=== PATIENT | male | born 1955 | race African-American/Black ===

== ENCOUNTER 2024-11-11 16:12 | Emergency (ER) | payer OTHER, SELFPAY ==
[2024-11-11 16:15] VITALS: BP 126/102
[2024-11-11 16:23] VITALS: BP 121/74; BMI 34.4
[2024-11-11 16:42] LABS: Hematocrit 34.7 % (39.0-52.0); Hemoglobin 11.5 g/dL (13.0-18.0); Mean Corp Hgb Conc. 33.1 g/dL (33.0-37.0); Mean Corpuscular Volume 84.0 fL (80.0-94.0); Nucleated Red Blood Cells % 0 % (-); Platelet Count 193 10^3/uL (130-400); Red Cell Dist. Width 14.0 % (11.5-14.5)
[2024-11-11 16:53] LABS: ALT (SGPT) 14 U/L (0-50); AST (SGOT) 24 U/L (17-59); Albumin 3.8 g/dl (3.5-5.0); Alkaline Phosphatase 47 U/L (38-126); Blood Urea Nitrogen 11 mg/dl (9-20); Calcium 11.5 mg/dl (8.4-10.2); Carbon Dioxide 24 mmol/L (22-30); Chloride 114 mmol/L (98-107); Estimated Creatinine Clearance 59 ml/min; Glucose 84 mg/dl (70-99); Potassium 4.3 mmol/L (3.5-5.1); Sodium 140 mmol/L (135-145); Total Protein 6.4 g/dl (6.3-8.2); eGFR > 60.00
[2024-11-11 17:00] VITALS: BP 118/79
--- NOTE | 2024-11-11 17:35 | ED.GENMED ---
History of Present Illness
General
Chief Complaint: Fall
Source: patient
Exam Limitations: none
Time Seen by Provider: 11/11/24 16:40
Nursing documentation reviewed up to this point in time: agreed with
History of Present Illness
History of Present Illness:
69[place]year[place] squats in the yard, had some pain in his neck felt hot went inside to play chess with a friend, then passed out was awoken after giving Narcan by staff, denies any illicit drug use, no chest pain or shortness of
breath, no fever or chills no abdominal pain states he feels fine now except some mild pain in his neck, no history of CAD no history of syncope, has been incarcerated for over a year formerly homeless in [place] tells me he is up for parole
soon not using any drugs
Past History
Past History
ED Past Medical History: Psychiatric
Social History
Tobacco: Non-smoker
Alcohol: None
Drug: None
Personal: Single
Living: care home
Employment: Not employed
Family History
Family History: Cancer; Negative CAD or Sudden
Review of Systems
Review of Systems
All Other Systems: Not applicable
EENT: Reports no symptoms
Respiratory: Reports no symptoms
Cardiac: Reports syncope; Denies chest pain
ABD/GI: Reports no symptoms
Musculoskeletal: Reports neck pain
Skin: Reports no symptoms
Neurological: Reports no symptoms
Phy Exam
Physical Exam
Physical Exam:
Physical Exam
General: no apparent distress, not acutely ill
Neck: No tongue bite, mild paraspinal neck pain and mid cervical spine
Heart: Regular
Lungs: no acute respiratory distress. clear bilaterally
Abdomen: Nontender
Neuro: alert and oriented. no focal neurological deficits
Skin: no rash
Psychiatric: well kept. interactive and cooperative
Extremities: no edema.
Scores
Heaters Syncope Rule
Conjestive Heart Failure History: No
Hematocrit <30%: No
EKG Abnormal (New changes, non NSR on EKG/Monitor): No
Shortness of Breath Symptoms: No
Systolic BP <90 mmHg at Triage: No
Patient is high risk for syncope: No
Course
Orders/Labs/Results
Orders:
Orders
11/11/24 16:26
Electrocardiogram (*1) Urgent
Reason for Study: Syncope
EKG- Treatment ONCE
11/11/24 16:27
CMP [Comprehensive Metabolic Panel] Urgent
Complete Blood Count/With Diff Urgent
11/11/24 17:12
CT Cervical Spine W/o Iv Contr Urgent
Comment:
Reason For Exam: fall
CT Head W/o Iv Contrast Urgent
Comment:
Reason For Exam: fall
11/11/24 17:21
Troponin I Urgent
11/11/24 17:22
Fentanyl, Urine Urgent
Urine Drug Abuse Screen Urgent
Date Specimen was Collected: 11/11/24
Time Specimen was Collected: 17:23
11/11/24 19:22
Troponin I Urgent
Abnormal Lab Results
11/11/24
16:27
RBC 4.13 L 10^6/uL
(4.70-6.10)
Hgb 11.5 L g/dL
(13.0-18.0)
Hct 34.7 L %
(39.0-52.0)
Absolute Monos (auto) 0.8 H 10^3/uL
(0.1-0.6)
Neutrophils % 39.1 L %
(42.2-75.2)
Monocytes % 14.8 H %
(1.7-9.3)
Chloride 114 H mmol/L
(98-107)
Calcium 11.5 H mg/dl
(8.4-10.2)
11/11/24 16:27
11/11/24 16:27
Vital Signs
Initial and Last Documented VS:
Initial Vital Signs
Temp Pulse Resp BP Pulse Ox
98.1 F 62 20 126/102 100
11/11/24 16:15 11/11/24 16:15 11/11/24 16:15 11/11/24 16:15 11/11/24 16:15
Last Documented Vital Signs
Temp Pulse Resp BP Pulse Ox
98.1 F 61 25 118/79 99
11/11/24 16:15 11/11/24 18:45 11/11/24 18:45 11/11/24 17:00 11/11/24 19:15
MDM/Problems Addressed
Differential Diagnosis Includes:
Vasovagal arrhythmia drug overdose less likely ACS or PE
MDM/Problems Addressed:
Syncope
*Radiology
Radiology exam reviewed: radiology read reviewed
*Pulse Oximetry
SaO2: 99
Oxygen Mode of Delivery: Room air
Patient hypoxic: no
*EKG
Interpreted by ED Provider?: Yes
Interpretation: normal
Comparison EKG: no comparison EKG present
Heart Rate: 76
Rate: normal
Rhythm: sinus
Ischemia: no ischemia
*Media Sales Representative Interpretation
Rate: normal
Interpretation: normal
Heart Rate: 78
Rhythm: sinus
*Critical Care Note
Total Time (30-74mins, 75-104mins- exclusive of procedures): Not Applicable
Update Note
Update Note:
Update, suspect vasovagal, did improve after Narcan unclear if its temporal relationship or not, adamantly denies any drugs, EKG noted will check CT of the head cervical spine due to fall and neck pain, also troponin
6:[address] reports noted, labs noted troponin noted urine drug screen noted
8:15 PM update second troponin noted
ED Attending Note
-
Portions of this chart may have been created with voice recognition software.� Occasional wrong word or��sound alike� substitutions may have occurred due to the inherent limitations of voice recognition software.
Discharge Plan
Departure
Patient Disposition: [facility]
Date of Disposition: 11/11/24
Time of Disposition: 20:09
Patient with high blood pressure during this ER visit?: No
Condition: Good
Covid-19: Not Applicable
Discharge Problem:
Syncope and collapse
Instructions: Fainting in adults - ED (DC)
Referrals:
[facility] [Family Provider, General]
Interventions
Interventions:
*Risk Screen - Suicide Last Done: 11/11/24 16:23
*General Assessment Last Done: 11/11/24 16:23
*Neglect/Abuse Screening Last Done: 11/11/24 16:23
*ED- Fall Risk Assessment Last Done: 11/11/24 16:23
*ED COVID-19 Vaccine History Last Done: 11/11/24 16:23
ED-Musculoskeletal Assessment Last Done: 11/11/24 17:38
ED- Neurological Assessment Last Done: 11/11/24 17:38
ED-Skin Assessment Last Done: 11/11/24 17:38
Discharge Date and Time
Print Language: [email or web address]
[2024-11-11 18:05] LABS: Troponin I < 0.012 ng/ml
[2024-11-11 20:08] LABS: Troponin I < 0.012 ng/ml
== END 2024-11-11 20:43 ==
LOC: EMR 16:12
PROVIDERS: EMERGENCY PHYSICIAN Emergency Medicine
DX: R55 Syncope and collapse (principal); M54.2 Cervicalgia; W19.XXXA Unspecified fall, initial encounter
CPT/HCPCS: 99284; 70450; 72125; 80053; 80306; 80307; 84484; 85025; 93005